=== PATIENT | male | born 1990 | race Caucasian/White ===

== ENCOUNTER 2024-11-28 17:28 | Emergency (ER) | payer OTHER ==
[~2024-11-28] VITALS: Ht 182.9 cm; Wt 87.0 kg
[2024-11-28 17:42] VITALS: O2SAT 97
[2024-11-28 19:49] LABS: BASOPHILS % 0.9 % (0.0-2.0); DIFFERENTIAL COMMENT 0; EOSINOPHILS % 2.8 % (0.0-5.0); HEMATOCRIT. 39.8 % (42.0-52.0); HEMOGLOBIN. 13.3 g/dL (14.0-18.0); LYMPHOCYTES % 17.9 % (20.0-50.0); MEAN CORPUSCULAR HEMOGLOBIN 34.6 pg (28.0-32.0); MEAN CORPUSCULAR HGB CONC 33.5 g/dL (31.0-37.0); MEAN CORPUSCULAR VOLUME 103.3 fL (80.0-94.0); MEAN PLATELET VOLUME 7.1 fl (7.4-10.4); MONOCYTES % 12.6 % (2.0-8.0); NEUTROPHILS % 65.8 % (40.0-76.0); PLATELET 265 x1000/uL (130-400); RED BLOOD CELL COUNT 3.85 mill/uL (4.7-6.1); WHITE BLOOD COUNT 7.5 x1000/uL (4.5-11.0)
[2024-11-28 19:57] LABS: CHLORIDE 103 mEq/L (98-107); POTASSIUM 4.3 mEq/L (3.5-5.1); SODIUM 138 mEq/L (136-145)
[2024-11-28 19:58] LABS: CALCIUM 9.2 mg/dL (8.7-10.4); CARBON DIOXIDE 28 mEq/L (21-32)
[2024-11-28 20:03] LABS: CREATININE 0.9 mg/dL (0.6-1.3); GLUCOSE 93 mg/dL (70-105); UREA NITROGEN BLOOD 12 mg/dL (9-23)
[2024-11-28] MEDS ORDERED: PIPERACILLIN/TAZO 3.375G/100ML 100 ML IV STA (20:47)
[2024-11-28] MEDS: PIPERACILLIN/TAZO 3.375G/50ML 50 ML IV NR (21:46)
[2024-11-29 01:03] VITALS: BP 118/68; PULSE 85; RESP 18; TEMP 36.6; O2SAT 97
== END 2024-11-29 01:03 | disposition short-term general hospital (02) ==
LOC: ER 17:28
DX: L08.9 Local infection of the skin and subcutaneous tissue, unspecified (principal)
CPT/HCPCS: 80048; 83605; 85025; 87040; 36415; 96365; 99285; J2543; Z7610; 99284